=== PATIENT | male | born 1950 | race Caucasian/White ===

== ENCOUNTER 2019-06-18 12:37 | Inpatient (IN) | payer BC, MEDICARE ==
[2019-06-18] MEDS ORDERED: ACETAMINOPHEN TAB 500 MG TAB PO STA (13:02)
--- NOTE | 2019-06-18 13:05 | ED ---
General Adult HPI - General Chief complaint: Weakness Stated complaint: Weakness Time Seen by Provider: 06/18/19 12:45 Source: patient, EMS, RN notes reviewed Mode of arrival: EMS Limitations: physical limitation - History of Present Illness Initial comments: Patient is a pleasant 68-year-old male presenting to emergency Department with complaints of generalized weakness. Onset of symptoms was a couple of days ago. Symptoms have progressively worsened. Patient is unaware of any fevers. Patient does have known stage IV lung cancer and is on treatment. Patient denies any significant cough or dyspnea. No abdominal pain. No dysuria. This is generalized. No isolated area of weakness. No confusion or speech problems. - Related Data Home Medications Medication Instructions Recorded Confirmed Atorvastatin [Lipitor] 40 mg PO HS 06/18/19 06/18/19 Famotidine 20 mg PO BID 06/18/19 06/18/19 Folic Acid 1 mg PO DAILY 06/18/19 06/18/19 HYDROcodone/APAP 5-325MG [[place] 1 tab PO Q4HR PRN 06/18/19 06/18/19 5-325] Metoclopramide [Reglan] 10 mg PO Q6H PRN 06/18/19 06/18/19 Ondansetron HCl [Zofran] 8 mg PO Q8H PRN 06/18/19 06/18/19 Sennosides/Docusate Sodium 1 tab PO BID 06/18/19 06/18/19 [Senna-S Laxative Tablet] Tamsulosin [Flomax] 0.4 mg PO DAILY 06/18/19 06/18/19 levETIRAcetam [Keppra] 500 mg PO Q12HR 06/18/19 06/18/19 metFORMIN HCL [Glucophage] 500 mg PO BID 06/18/19 06/18/19 Allergies Allergy/AdvReac Type Severity Reaction Status Date / Time No Known Allergies Allergy Verified 06/18/19 13:43 Review of Systems ROS Statement: Those systems with pertinent positive or pertinent negative responses have been documented in the HPI. ROS Other: All systems not noted in ROS Statement are negative. Constitutional: Reports: as per HPI Eyes: Denies: eye pain ENT: Denies: ear pain Respiratory: Denies: dyspnea Cardiovascular: Denies: chest pain Endocrine: Reports: fatigue Gastrointestinal: Denies: abdominal pain Genitourinary: Denies: dysuria Musculoskeletal: Denies: back pain Skin: Denies: rash Neurological: Denies: headache Past Medical History Past Medical History: No Reported History History of Any Multi-Drug Resistant Organisms: None Reported Additional Past Surgical History / Comment(s): Stent in leg Past Psychological History: No Psychological Hx Reported Smoking Status: Never smoker Past Alcohol Use History: None Reported Past Drug Use History: None Reported General Exam Limitations: physical limitation General appearance: alert, in no apparent distress Head exam: Present: atraumatic Eye exam: Present: normal appearance, PERRL ENT exam: Present: mucous membranes dry Neck exam: Present: normal inspection. Absent: meningismus Respiratory exam: Present: normal lung sounds bilaterally Cardiovascular Exam: Present: tachycardia GI/Abdominal exam: Present: soft. Absent: distended, tenderness Extremities exam: Present: normal inspection. Absent: pedal edema, calf tenderness Neurological exam: Present: alert, oriented X3, CN II-XII intact. Absent: motor sensory deficit Expanded Neurological exam: Present: protecting the airway Speech: Present: fluid speech Motor strength exam: RUE: 5, LUE: 5, RLE: 5, LLE: 5 Eye Response: (4) open spontaneously Motor Response: (6) obeys commands Verbal Response: (5) oriented Psychiatric exam: Present: normal affect, normal mood Skin exam: Present: normal color Course Vital Signs 06/18/19 06/18/19 06/18/19 12:40 14:00 16:41 Temperature 102.0 F H 99.5 F Pulse Rate 125 H 112 H 94 Respiratory 18 19 18 Rate Blood Pressure 121/79 123/62 92/46 O2 Sat by Pulse 97 98 94 L Oximetry EKG Findings - EKG Comments: EKG Findings:: Sinus tachycardia 129. WA 116. QRS 74. QT 332. QTC 46. Normal axis. Normal QRS. No acute ST change. Medical Decision Making - Medical Decision Making Case was discussed with practitioner tiana who did recommend checking thyroid panel and computed tomography scan for pulmonary embolism. She does feel patient could benefit from steroids. Patient later reevaluated. Blood pressure has somewhat diminished. Patient feels somewhat better however family is concerned regarding patient inability to take care of himself. Case was also discussed with Dr. Martines, who will admit for Dr. Browne. He does request more fluids as well as Levaquin and Zosyn. - Lab Data Result diagrams: 06/18/19 13:04 06/18/19 13:04 Lab Results 06/18/19 06/18/19 06/18/19 Range/Units 13:04 13:04 13:04 WBC 9.5 (3.8-10.6) k/uL RBC 3.95 L (4.30-5.90) m/uL Hgb 11.4 L (13.0-17.5) gm/dL Hct 33.8 L (39.0-53.0) % MCV 85.7 (80.0-100.0) fL MCH 29.0 (25.0-35.0) pg MCHC 33.8 (31.0-37.0) g/dL RDW 16.2 H (11.5-15.5) % Plt Count 431 (150-450) k/uL Neutrophils % 66 % Lymphocytes % 18 % Monocytes % 9 % Eosinophils % 3 % Basophils % 0 % Neutrophils # 6.3 (1.3-7.7) k/uL Lymphocytes # 1.8 (1.0-4.8) k/uL Monocytes # 0.9 (0-1.0) k/uL Eosinophils # 0.3 (0-0.7) k/uL Basophils # 0.0 (0-0.2) k/uL Anisocytosis Slight PT (9.0-12.0) sec INR (<1.2) APTT (22.0-30.0) sec Sodium 137 (137-145) mmol/L Potassium 4.0 (3.5-5.1) mmol/L Chloride 100 (98-107) mmol/L Carbon Dioxide 22 (22-30) mmol/L Anion Gap 15 mmol/L BUN 14 (9-20) mg/dL Creatinine 1.52 H (0.66-1.25) mg/dL Est GFR (CKD-EPI)AfAm 55 (>60 ml/min/1.73 sqM) Est GFR (CKD-EPI)NonAf 47 (>60 ml/min/1.73 sqM) Glucose 119 H (74-99) mg/dL Plasma Lactic Acid Kermit 1.7 (0.7-2.0) mmol/L Calcium 9.0 (8.4-10.2) mg/dL Total Bilirubin 1.7 H (0.2-1.3) mg/dL AST 54 (17-59) U/L ALT 43 (21-72) U/L Alkaline Phosphatase 125 (38-126) U/L Total Protein 6.2 L (6.3-8.2) g/dL Albumin 3.4 L (3.5-5.0) g/dL Urine Color Urine Appearance (Clear) Urine pH (5.0-8.0) Ur Specific [place] (1.001-1.035) Urine Protein (Negative) Urine Glucose (UA) (Negative) Urine Ketones (Negative) Urine Blood (Negative) Urine Nitrite (Negative) Urine Bilirubin (Negative) Urine Urobilinogen (<2.0) mg/dL Ur Leukocyte Esterase (Negative) Urine WBC (0-5) /hpf Urine Bacteria (None) /hpf Urine Mucus (None) /hpf 06/18/19 06/18/19 Range/Units 13:04 13:20 WBC (3.8-10.6) k/uL RBC (4.30-5.90) m/uL Hgb (13.0-17.5) gm/dL Hct (39.0-53.0) % MCV (80.0-100.0) fL MCH (25.0-35.0) pg MCHC (31.0-37.0) g/dL RDW (11.5-15.5) % Plt Count (150-450) k/uL Neutrophils % % Lymphocytes % % Monocytes % % Eosinophils % % Basophils % % Neutrophils # (1.3-7.7) k/uL Lymphocytes # (1.0-4.8) k/uL Monocytes # (0-1.0) k/uL Eosinophils # (0-0.7) k/uL Basophils # (0-0.2) k/uL Anisocytosis PT 11.1 (9.0-12.0) sec INR 1.0 (<1.2) APTT 23.4 (22.0-30.0) sec Sodium (137-145) mmol/L Potassium (3.5-5.1) mmol/L Chloride (98-107) mmol/L Carbon Dioxide (22-30) mmol/L Anion Gap mmol/L BUN (9-20) mg/dL Creatinine (0.66-1.25) mg/dL Est GFR (CKD-EPI)AfAm (>60 ml/min/1.73 sqM) Est GFR (CKD-EPI)NonAf (>60 ml/min/1.73 sqM) Glucose (74-99) mg/dL Plasma Lactic Acid Kermit (0.7-2.0) mmol/L Calcium (8.4-10.2) mg/dL Total Bilirubin (0.2-1.3) mg/dL AST (17-59) U/L ALT (21-72) U/L Alkaline Phosphatase (38-126) U/L Total Protein (6.3-8.2) g/dL Albumin (3.5-5.0) g/dL Urine Color Yellow Urine Appearance Clear (Clear) Urine pH 5.5 (5.0-8.0) Ur Specific [place] 1.024 (1.001-1.035) Urine Protein 1+ H (Negative) Urine Glucose (UA) Negative (Negative) Urine Ketones Trace H (Negative) Urine Blood Negative (Negative) Urine Nitrite Negative (Negative) Urine Bilirubin Negative (Negative) Urine Urobilinogen 2.0 (<2.0) mg/dL Ur Leukocyte Esterase Negative (Negative) Urine WBC <1 (0-5) /hpf Urine Bacteria Rare H (None) /hpf Urine Mucus Rare H (None) /hpf - Radiology Data Radiology results: report reviewed (Computed tomography scan the chest negative for pulmonary embolism. Lung masses present.), image reviewed (Chest x-ray shows lung mass) Disposition Clinical Impression: Fever, Generalized weakness Disposition: ADMITTED IP TO THIS HOSP Is patient prescribed a controlled substance at d/c from ED?: No Referrals: Tomas Browne MD [Primary Care Provider] - 1-2 days Decision Time: 17:18
[2019-06-18] MEDS: SODIUM CHLORIDE 0.9% 500 ML 500 ML IV SCH (13:12)
[2019-06-18 13:20] LABS: Anisocytosis Slight; Basophils % (A) 0 %; Eosinophils # (A) 0.3 k/uL (0-0.7); Eosinophils % (A) 3 %; HCT 33.8 % (39.0-53.0); HGB 11.4 gm/dL (13.0-17.5); Lymphocytes # (A) 1.8 k/uL (1.0-4.8); Lymphocytes % (A) 18 %; MCHC 33.8 g/dL (31.0-37.0); MCV 85.7 fL (80.0-100.0); Monocytes # (A) 0.9 k/uL (0-1.0); Monocytes % (A) 9 %; Neutrophils # (A) 6.3 k/uL (1.3-7.7); Neutrophils % (A) 66 %; Platelet Count 431 k/uL (150-450); RBC 3.95 m/uL (4.30-5.90); RDW 16.2 % (11.5-15.5); WBC 9.5 k/uL (3.8-10.6)
[2019-06-18 13:30] LABS: Partial Thromboplastin Time 23.4 sec (22.0-30.0); Prothrombin Time 11.1 sec (9.0-12.0)
[2019-06-18 13:35] LABS: Albumin 3.4 g/dL (3.5-5.0); Total Bilirubin 1.7 mg/dL (0.2-1.3); Total Protein 6.2 g/dL (6.3-8.2)
--- NOTE | 2019-06-18 13:43 | XR ---
EXAMINATION TYPE: XR chest 2V DATE OF EXAM: 06/18/2019 COMPARISON: 11/09/2010 INDICATION: Weakness lung cancer TECHNIQUE: Frontal and lateral views of the chest are obtained. FINDINGS: The heart size is normal. The pulmonary vasculature is normal. There is a right infrahilar mass which can be associated with patient's reported lung cancer. Periphe ral consolidation is not identified.. IMPRESSION: 1. Right posterior infrahilar mass can be compatible patient's reported neoplasm.
[2019-06-18 13:55] LABS: Appearance,Urine Clear (Clear); Bacteria,Urine Rare /hpf; Bilirubin,Urine Negative (Negative); Blood,Urine Negative (Negative); Color,Urine Yellow; Glucose,Urine (UA) Negative (Negative); Ketones,Urine Trace (Negative); Leukocyte Esterase,Urine Negative (Negative); Mucus,Urine Rare /hpf; Nitrite,Urine Negative (Negative); PH, Urine 5.5 (5.0-8.0); Protein,Urine 1+ (Negative); Specific Gravity,Urine 1.024 (1.001-1.035); WBC,Urine <1 /hpf (0-5)
[2019-06-18] MEDS ORDERED: SODIUM CHLORIDE 0.9% 1,000 ML IV STA ×2 (15:07→16:56)
--- NOTE | 2019-06-18 15:26 | US ---
EXAMINATION TYPE: US gallbladder DATE OF EXAM: 06/18/2019 COMPARISON: NONE CLINICAL HISTORY: fever. Weakness, abnormal labs EXAM MEASUREMENTS: Liver Length: 12.4 cm Gallbladder Wall: 0.3 cm CBD: 0.4 cm Right Kidney: 9.0 x 4.6 x 4.8 cm Pancreas: wnl, tail obscured by overlying bowel gas Liver: There is mild heterogeneity throughout the liver without discrete masses or cysts. Some mild fatty infiltration may be present. Gallbladder: Sludge filling lumen/ wall thickness upper limits of normal Evidence for sonographic Oquendo's sign: No CBD: wnl Right Kidney: wnl, lower pole gassed out IMPRESSION: 1. Sludge-filled gallbladder. Correlate for cholestasis. 2. Mild fatty infiltration liver
--- NOTE | 2019-06-18 16:26 | CT ---
EXAMINATION TYPE: CT angio chest DATE OF EXAM: 06/18/2019 COMPARISON: HISTORY: Weakness and shortness of breath. Brain tumor removal in March 2019 CT DLP: 251.4 mGycm CONTRAST: CT chest with contrast and 3D reconstruction with MIP imaging is performed with IV Contrast, patient injected with 70 mL of Isovue 370. Contrast-enhanced CT of the chest was performed through the course of the pulmonary arteries with tejal g and mediastinal window settings submitted. 3D reconstruction with MIP imaging was also performed. PULMONARY ARTERIES: The pulmonary arteries and their major tributaries are patent. I do not see nguyễn dence for sizable filling defect to suggest pulmonary embolic process. LUNGS: Right infrahilar mass noted measuring 4.0 x 4.6 cm felt to reflect malignancy until proven oth erwise. Nodular pleural extension is identified posteriorly. There is extension to the right hilum. S uspect right hilar adenopathy. MEDIASTINUM: Thoracic aorta is of normal caliber,however, evaluation is limited given timing of the contrast bolus. The heart is not enlarged. No evidence for mediastinal mass. Subcarinal adenopathy measuring 1.5 cm short axis. HILAR STRUCTURES: No evidence for mass. No hilar lymph nodes greater than 1 cm. UPPER ABDOMEN: No significant abnormality is seen. IMPRESSION: 1. No evidence for Pulmonary embolism at this time. 2. Right infrahilar mass felt to reflect malignancy until proven otherwise. See above.
[2019-06-18] MEDS ORDERED: PIPERACILLIN-TAZOBACTAM 3.375 GM in SODIUM CHLORIDE 0.9% 100 ML IVPB STA (17:19)
[2019-06-18] MEDS ORDERED: PNEUMONIA PROTOCOL UTILIZED 1 EACH MISC PO PRN (17:19)
[2019-06-18] MEDS ORDERED: LEVOFLOXACIN 500MG-D5W PMX 500 MG in DEXTROSE/WATER 1 100ML.BAG IVPB STA (17:20)
[2019-06-18] MEDS: SODIUM CHLORIDE 0.9% 1,000 ML IV SCH (18:28)
[2019-06-18] MEDS: methylPREDNISolone SOD SUCCI 40 MG/ML 1 ML VIAL IV SCH ×2 (20:16→22:42)
[2019-06-18] MEDS ORDERED: METOCLOPRAMIDE 10 MG TAB PO PRN (21:58)
[2019-06-18] MEDS ORDERED: ONDANSETRON ODT 4 MG TAB PO PRN (21:58)
[2019-06-18] MEDS: FAMOTIDINE 20 MG TAB PO SCH (22:41)
[2019-06-18] MEDS: levETIRAcetam 500 MG TAB PO SCH (22:41)
[2019-06-18] MEDS: HYDROcodone/APAP 5-325MG 1 EACH TAB PO PRN (22:41)
[2019-06-18] MEDS: ATORVASTATIN 40 MG TAB PO SCH (22:41)
[2019-06-18] MEDS: PIPERACILLIN-TAZOBACTAM 3.375 GM in SODIUM CHLORIDE 0.9% 100 ML IVPB SCH (22:48)
[2019-06-18 23:51] LABS: T4, Free (Free Thyroxine) 1.31 ng/dL (0.78-2.19)
[2019-06-19] MEDS: SODIUM CHLORIDE 0.9% 1,000 ML IV SCH ×3 (04:48→23:28)
[2019-06-19 06:28] LABS: Glucose,Whole Blood 202 mg/dL (75-99)
[2019-06-19] MEDS: INSULIN ASPART (NovoLOG) 100 UNIT/ML VIAL SQ SCH ×4 (06:41→20:12)
[2019-06-19] MEDS: methylPREDNISolone SOD SUCCI 40 MG/ML 1 ML VIAL IV SCH ×4 (06:41→23:22)
[2019-06-19] MEDS: FAMOTIDINE 20 MG TAB PO SCH (08:28)
[2019-06-19] MEDS: FOLIC ACID 1 MG TAB PO SCH (08:28)
[2019-06-19] MEDS: levETIRAcetam 500 MG TAB PO SCH ×2 (08:28→20:13)
[2019-06-19] MEDS: SENNOSIDES-DOCUSATE SODIUM 1 EACH TAB PO SCH ×2 (08:28→20:13)
[2019-06-19] MEDS: TAMSULOSIN 0.4 MG CAP.ER.24H PO SCH (08:28)
[2019-06-19] MEDS: metFORMIN 500 MG TAB PO SCH ×2 (08:28→20:13)
[2019-06-19] MEDS: HYDROcodone/APAP 5-325MG 1 EACH TAB PO PRN ×2 (08:28→20:13)
[2019-06-19] MEDS: PIPERACILLIN-TAZOBACTAM 3.375 GM in SODIUM CHLORIDE 0.9% 100 ML IVPB SCH ×3 (08:29→23:28)
--- NOTE | 2019-06-19 09:16 | XR ---
EXAMINATION TYPE: XR chest 2V DATE OF EXAM: 06/19/2019 COMPARISON: 06/18/2019 INDICATION: Fever TECHNIQUE: Frontal and lateral views of the chest are obtained. FINDINGS: The heart size is normal. The pulmonary vasculature is normal. Right posterior hilar density is similar to slightly larger than comparison. Continued follow-up is r ecommended.. IMPRESSION: 1. Right posterior hilar density appears similar slightly enlarged from comparison. Continued Follow- up is recommended.
[2019-06-19 12:12] LABS: Glucose,Whole Blood 270 mg/dL (75-99)
--- NOTE | 2019-06-19 12:29 | P.HPIM ---
History of Present Illness H&P Date: 06/19/19 Chief Complaint: Generalized weakness /fever. This is a 8-year-old male one of Dr. Browne with a previous medical history significant for stage IV lung cancer was started on chemotherapy and immunotherapy for the first cycle in April he was supposed to go for another c hemotherapy yesterday however the patient for the past few days has been complaining of generalized weakness along with fever and poor appetite not able to ambulate around ,his friend came and tried to take him to the oncologist however he was so weak he called 911 and the patient was brought into the ER for evaluation he was slightly hypotensive on arrival he was given 2 L of normal saline also was found to have a temperature of 102.2, patient was given IV anabiotic in the form of Levaquin and Zosyn and he was started on IV steroid in the form of Solu-Medrol 40 mg IV push every 6 hours, patient was admitted to the hospital for evaluation by hematology oncology. Review of Systems Constitutional: Reports anorexia, Reports fatigue, Reports fever, Reports lethargy, Reports malaise, Reports weakness, Reports weight loss Eyes: denies blurred vision, denies bulging eye, denies decreased vision, denies diplopia Ears: deny: decreased hearing Ears, nose, mouth and throat: Denies dysphagia, Denies neck lump, Denies swelling in throat, Denies sore throat Cardiovascular: Reports decreased exercise tolerance, Reports dyspnea on exertion, Reports shortness of breath, Denies chest pain, Denies lightheadedness, Denies rapid heart beat, Denies syncope Respiratory: Denies congestion, Denies cough with sputum, Denies home oxygen, De nies sleep apnea, Denies snoring, Denies wheezing Gastrointestinal: Denies abdominal pain, Denies bloating, Denies BRBPR, Denies heartburn, Denies loss of appetite, Denies melena, Denies nausea, Denies vomiting Genitourinary: Denies dysuria Musculoskeletal: Reports atrophy, Reports gait dysfunction, Reports muscle weakness Musculoskeletal: absent: ankle pain, ankle stiffness, ankle swelling, elbow pain, elbow stiffness, elbow swelling, foot pain, foot stiffness, foot swelling, hand pain, hand stiffness, hand swelling, hip pain, hip stiffness, hip swelling, knee pain, knee stiffness, knee swelling, shoulder pain, shoulder stiffness, shoulder swelling, wrist pain, wrist stiffness, wrist swelling Integumentary: Denies pruritus, Denies rash Neurological: Reports gait dysfunction, Reports numbness, Reports weakness Psychiatric: Denies anxiety, Denies depression Endocrine: Reports fatigue, Reports weight change Past Medical History Past Medical History: Cancer, Diabetes Mellitus, GERD/Reflux, Hyperlipidemia, Neurologic Disorder, Osteoarthritis (OA), Prostate Disorder, Vascular Disorder Additional Past Medical History / Comment(s): stage 4 Lung CA with mets to the brain that were removed in April 16, History of Any Multi-Drug Resistant Organisms: None Reported Additional Past Surgical History / Comment(s): Stent in leg, removal of brain tumors march 2019 at [facility] Past Anesthesia/Blood Transfusion Reactions: No Reported Reaction Past Psychological History: No Psychological Hx Reported Smoking Status: Former smoker (Patient used to smoke about pack every day for about 47 years and he quit about 4 years ago.) Past Alcohol Use History: None Reported Past Drug Use History: Marijuana Additional Drug Use History / Comment(s): occasional marijuana use - Past Family History Father Family Medical History: Cancer (Father at age of 88 from prostate cancer and COPD.) Additional Family Medical History / Comment(s): prostate CA Sister(s) Family Medical History: Cancer (Patient has one sister with breast cancer.) Additional Family Medical History / Comment(s): Breast CA Mother Family Medical History: Dementia (Mother at age 78 after hip fracture from Alzheimer dementia.) Brother(s) Family Medical History: Diabetes Mellitus (Patient has 2 brothers with diabetes mellitus type 1.) Additional Family Medical History / Comment(s): Patient was never has no kids. Medications and Allergies Home Medications Medication Instructions Recorded Confirmed Type Atorvastatin [Lipitor] 40 mg PO HS 06/18/19 06/18/19 History Famotidine 20 mg PO BID 06/18/19 06/18/19 History Folic Acid 1 mg PO DAILY 06/18/19 06/18/19 History HYDROcodone/APAP 5-325MG [[place] 1 tab PO Q4HR PRN 06/18/19 06/18/19 History 5-325] Metoclopramide [Reglan] 10 mg PO Q6H PRN 06/18/19 06/18/19 History Ondansetron HCl [Zofran] 8 mg PO Q8H PRN 06/18/19 06/18/19 History Sennosides/Docusate Sodium 1 tab PO BID 06/18/19 06/18/19 History [Senna-S Laxative Tablet] Tamsulosin [Flomax] 0.4 mg PO DAILY 06/18/19 06/18/19 History levETIRAcetam [Keppra] 500 mg PO Q12HR 06/18/19 06/18/19 History metFORMIN HCL [Glucophage] 500 mg PO BID 06/18/19 06/18/19 History Allergies Allergy/AdvReac Type Severity Reaction Status Date / Time No Known Allergies Allergy Verified 06/18/19 13:43 Physical Exam Vitals: Vital Signs Temp Pulse Pulse Resp BP BP Pulse Ox 06/19/19 11:51 97.6 F 96 20 109/61 96 06/19/19 08:00 97.5 F L 113 H 20 113/62 96 06/19/19 03:46 79 18 06/19/19 03:45 98.0 F 79 18 104/56 95 06/19/19 00:00 98.5 F 91 18 96/53 92 L 06/18/19 20:55 98.1 F 91 18 124/66 96 06/18/19 20:26 98.0 F 98 20 104/65 95 06/18/19 18:47 93 18 106/61 94 L 06/18/19 16:41 94 18 92/46 94 L 06/18/19 14:00 99.5 F 112 H 19 123/62 98 06/18/19 12:40 102.0 F H 125 H 18 121/79 97 Intake and Output 06/18/19 06/19/19 06/19/19 22:59 06:59 14:59 Intake Total 800 Output Total 700 Balance 100 Intake: Intake, IV Titration 800 Amount Sodium Chloride 0.9% 1, 800 000 ml @ 100 mls/hr IV . Q10H [facility] Rx#:[id number] Output: Urine 700 Other: Voiding Method Urinal Urinal Urinal Weight 72.5 kg - Constitutional General appearance: mild distress, thin - EENT Eyes: anicteric sclerae, EOMI, PERRLA, no ptosis, no scleral icterus, normal appearance ENT: hearing grossly normal, NA/AT, normal oropharynx, no thrush Ears: bilateral: normal - Neck Neck: no lymphadenopathy, normal ROM, no rigidity, no stridor, no thyromegaly Carotids: bilateral: upstroke delayed Thyroid: bilateral: normal size - Respiratory Respiratory: bilateral: diminished, negative: dullness, rales, rhonchi, wheezing, prolonged expiration - Cardiovascular Rhythm: regular Heart sounds: normal: S1, S2 Abnormal Heart Sounds: systolic murmur, no S3 Gallop, no S4 Gallop, no click - Gastrointestinal General gastrointestinal: normal bowel sounds, soft, no tenderness, no umbilical hernia, no ventral hernia - Integumentary Integumentary: decreased turgor - Neurologic Neurologic: CNII-XII intact - Musculoskeletal Musculoskeletal: generalized weakness, strength equal bilaterally - Psychiatric Psychiatric: A&O x's 3, appropriate affect, intact judgment & insight Results CBC & Chem 7: 06/18/19 13:04 06/18/19 13:04 Labs: Abnormal Lab Results - Last 24 Hours (Table) 06/18/19 06/18/19 06/18/19 Range/Units 13:04 13:04 13:20 RBC 3.95 L (4.30-5.90) m/uL Hgb 11.4 L (13.0-17.5) gm/dL Hct 33.8 L (39.0-53.0) % RDW 16.2 H (11.5-15.5) % Creatinine 1.52 H (0.66-1.25) mg/dL Glucose 119 H (74-99) mg/dL POC Glucose (mg/dL) (75-99) mg/dL Total Bilirubin 1.7 H (0.2-1.3) mg/dL Total Protein 6.2 L (6.3-8.2) g/dL Albumin 3.4 L (3.5-5.0) g/dL Urine Protein 1+ H (Negative) Urine Ketones Trace H (Negative) Urine Bacteria Rare H (None) /hpf Urine Mucus Rare H (None) /hpf 06/19/19 06/19/19 Range/Units 06:16 12:06 RBC (4.30-5.90) m/uL Hgb (13.0-17.5) gm/dL Hct (39.0-53.0) % RDW (11.5-15.5) % Creatinine (0.66-1.25) mg/dL Glucose (74-99) mg/dL POC Glucose (mg/dL) 202 H 270 H (75-99) mg/dL Total Bilirubin (0.2-1.3) mg/dL Total Protein (6.3-8.2) g/dL Albumin (3.5-5.0) g/dL Urine Protein (Negative) Urine Ketones (Negative) Urine Bacteria (None) /hpf Urine Mucus (None) /hpf Microbiology - Last 24 Hours (Table) 06/18/19 13:20 Urine Culture - Preliminary Urine,Catheterized Thrombosis Risk Factor Assmnt - DVT/VTE Prophylaxis DVT/VTE Prophylaxis: Pharmacologic Prophylaxis ordered, Mechanical Prophylaxis ordered - Choose All That Apply Any of the Below Risk Factors Present?: No Other Risk Factors: Yes Each Risk Factor Represents 2 Points: Age 61-74 years Other congenital or acquired thrombophilia - If yes, enter type in comment: No Thrombosis Risk Factor Assessment Total Risk Factor Score: 2 Thrombosis Risk Factor Assessment Level: Low Risk Assessment and Plan Assessment: Assessment and plan: 1. Acute febrile illness of unclear etiology possible gram-negative pneumonia. Patient would have a blood cultures and sputum culture we will start IV antibiotic in the form of Levaquin and Zosyn, monitor the patient very closely, continue IV fluid resuscitation in the form of normal saline at 100 mL an hour, we will start the patient on Solu-Medrol 40 mg IV push every 6 hours as well hematology oncology consultation. This is could be all related to drug reactions and or tumor related fever. 2. Stage IV lung cancer status post chemotherapy and immunotherapy. Consult hematology oncology. 3. Diabetes mellitus type 2. Continue metformin 500 mg orally twice every day. 4. Hyperlipidemia. Continue Lipitor 40 mg orally once every day. 5. PAD. Status post left PTBA of the left leg stable. 6. Enlarged prostate. Continue Flomax 0.4 mg orally once every day. 7. DVT prophylaxis. Heparin 5000 units subcutaneously every 12 hours. 8. GI prophylaxis. Continue Pepcid. 9. Admit to inpatient. Estimated length of stay 2 midnights. 10. Patient is full code.
[2019-06-19 14:06] LABS: Hemoglobin A1C 8.8 % (4.0-6.0)
[2019-06-19 17:03] LABS: Glucose,Whole Blood 318 mg/dL (75-99)
--- NOTE | 2019-06-19 17:30 | P.CONS ---
History of Present Illness - Reason for Consult Consult date: 06/19/19 NSCLC Requesting physician: Ramirez Kidd - Chief Complaint Progressive weakness - History of Present Illness Mr. Feng is a very pleasant male pt of Dr. Skinner who initially presented with fullness in his head, treated with short course steroid with transient improvement. CT brain on 03/13/19 revealed a mass in right parietal occipital lobe associated with vasogenic edema. He was sent to [facility]. Brain MRI on 03/29/2019 revealed large necrotic mass in right occipital lobe associated with vasogenic edema,smaller lesion in right frontal lobe and a smaller lesion a left frontal lobe. 03/28/19 CT CAP revealed 5.8 x 5.4 x 5.3 cm mass in RLL, otherwise negative. 03/31/19 he had craniotomy and resection of the large right occipital mass, pathology was consistent with metastatic carcinoma consistent with adenocarcinoma of the lung. He was seen by Dr. Almaguer and completed whole brain radiation on 04/23/19. 05/06/19 PET scan revealed suspicious uptake in right hilar mass. Pt had 1 st carbo/alimta/keytruda on 05/28/19, and states he tolerated very well with no unmanageable side effects to report. He was due for cycle 2 yesterday but, a few days ago he began to have progressive symptoms of malaise, oral intake decreased and he became very weak, he came to ER, fever 102F, tachy, CBC ok, >20:1 BUN/Cr ratio, CTA neg for PE, no acute pneumonia suspected. He was admitted and started on empiric abx after galvan cultures. He is doing well when seen today, eating lunch, visiting with friends. He does live alone and pt and family want him to get rehab before he goes back. He admits to getting confused when it comes to taking his meds, may take some, forget others Review of Systems 14 point ROS is negative except as stated in HPI Past Medical History Past Medical History: Cancer, Diabetes Mellitus, GERD/Reflux, Hyperlipidemia, Neurologic Disorder, Osteoarthritis (OA), Prostate Disorder, Vascular Disorder Additional Past Medical History / Comment(s): stage 4 Lung CA with mets to the brain that were removed in April 16, History of Any Multi-Drug Resistant Organisms: None Reported Additional Past Surgical History / Comment(s): Stent in leg, removal of brain tumors march 2019 at [facility] Past Anesthesia/Blood Transfusion Reactions: No Reported Reaction Past Psychological History: No Psychological Hx Reported Smoking Status: Former smoker (Patient used to smoke about pack every day for about 47 years and he quit about 4 years ago.) Past Alcohol Use History: None Reported Past Drug Use History: Marijuana Additional Drug Use History / Comment(s): occasional marijuana use - Past Family History Father Family Medical History: Cancer (Father at age of 88 from prostate cancer and COPD.) Additional Family Medical History / Comment(s): prostate CA Sister(s) Family Medical History: Cancer (Patient has one sister with breast cancer.) Additional Family Medical History / Comment(s): Breast CA Mother Family Medical History: Dementia (Mother at age 78 after hip fracture from Alzheimer dementia.) Brother(s) Family Medical History: Diabetes Mellitus (Patient has 2 brothers with diabetes mellitus type 1.) Additional Family Medical History / Comment(s): Patient was never has no kids. Medications and Allergies Home Medications Medication Instructions Recorded Confirmed Type Atorvastatin [Lipitor] 40 mg PO HS 06/18/19 06/18/19 History Famotidine 20 mg PO BID 06/18/19 06/18/19 History Folic Acid 1 mg PO DAILY 06/18/19 06/18/19 History HYDROcodone/APAP 5-325MG [[place] 1 tab PO Q4HR PRN 06/18/19 06/18/19 History 5-325] Metoclopramide [Reglan] 10 mg PO Q6H PRN 06/18/19 06/18/19 History Ondansetron HCl [Zofran] 8 mg PO Q8H PRN 06/18/19 06/18/19 History Sennosides/Docusate Sodium 1 tab PO BID 06/18/19 06/18/19 History [Senna-S Laxative Tablet] Tamsulosin [Flomax] 0.4 mg PO DAILY 06/18/19 06/18/19 History levETIRAcetam [Keppra] 500 mg PO Q12HR 06/18/19 06/18/19 History metFORMIN HCL [Glucophage] 500 mg PO BID 06/18/19 06/18/19 History Allergies Allergy/AdvReac Type Severity Reaction Status Date / Time No Known Allergies Allergy Verified 06/18/19 13:43 Physical Exam Vitals: Vital Signs Temp Pulse Pulse Resp BP BP Pulse Ox 06/19/19 15:48 97.6 F 61 18 112/59 96 06/19/19 11:51 97.6 F 96 20 109/61 96 06/19/19 08:00 97.5 F L 113 H 20 113/62 96 06/19/19 03:46 79 18 06/19/19 03:45 98.0 F 79 18 104/56 95 06/19/19 00:00 98.5 F 91 18 96/53 92 L 06/18/19 20:55 98.1 F 91 18 124/66 96 06/18/19 20:26 98.0 F 98 20 104/65 95 06/18/19 18:47 93 18 106/61 94 L Intake and Output 06/19/19 06/19/19 06/19/19 06:59 14:59 22:59 Intake Total 800 900 Output Total 700 Balance 100 900 Intake: Intake, IV Titration 800 900 Amount Piperacillin-Tazobactam 3 100 .375 gm In Sodium Chloride 0.9% 100 ml @ 25 mls/hr IVPB Q8HR [facility] Rx# :[id number] Sodium Chloride 0.9% 1, 800 800 000 ml @ 100 mls/hr IV . Q10H [facility] Rx#:[id number] Output: Urine 700 Other: Voiding Method Urinal Urinal Weight 72.5 kg - Constitutional General appearance: cooperative, no acute distress, thin - EENT Eyes: anicteric sclerae, EOMI, poor dentition ENT: hearing grossly normal, normal oropharynx - Neck Neck: no lymphadenopathy - Respiratory Respiratory: bilateral: diminished - Cardiovascular Rhythm: regular Heart sounds: normal: S1, S2 Abnormal Heart Sounds: no systolic murmur, no diastolic murmur, no rub, no S3 Gallop, no S4 Gallop, no click, no other leg Peripheral Edema: bilateral: Trace - Gastrointestinal General gastrointestinal: no absent bowel sounds, no decreased bowel sounds, no distended, no hepatomegaly, no hyperactive bowel sounds, normal bowel sounds, no organomegaly, no rigid, no scaphoid, soft, no splenomegaly, no tenderness, no umbilical hernia, no ventral hernia - Neurologic Neurologic: CNII-XII intact - Musculoskeletal Musculoskeletal: generalized weakness - Psychiatric Psychiatric: A&O x's 3, appropriate affect, intact judgment & insight Results CBC & Chem 7: 06/18/19 13:04 06/18/19 13:04 Labs: Abnormal Lab Results - Last 24 Hours (Table) 06/18/19 06/19/19 06/19/19 Range/Units 13:04 06:16 12:06 POC Glucose (mg/dL) 202 H 270 H (75-99) mg/dL Hemoglobin A1c 8.8 H (4.0-6.0) % 06/19/19 Range/Units 16:45 POC Glucose (mg/dL) 318 H (75-99) mg/dL Hemoglobin A1c (4.0-6.0) % Microbiology - Last 24 Hours (Table) 06/18/19 13:04 Blood Culture - Preliminary Blood No Growth after 24 hours 06/18/19 13:20 Urine Culture - Preliminary Urine,Catheterized Chest x-ray: report reviewed Assessment and Plan (1) Dehydration Narrative/Plan: Improved with IV hydration. He is ate about 60% of his lunch tray. Pt c/o of it being hard for him to cook meals for just himself. I asked if he had inquired about meals on wheels, he said he refused it. I told him that if he refuses services that are available there is not much else the system can do. Current Visit: Yes Status: Acute Priority: High Code(s): E86.0 - DEHYDRATION SNOMED Code(s): 78501745 (2) Fever Narrative/Plan: No fever since admit. Cultures pending. Empiric abx Current Visit: Yes Status: Acute Priority: Low Code(s): R50.9 - FEVER, UNSPECIFIED SNOMED Code(s): 851168683 (3) Generalized weakness Narrative/Plan: Discussed with pt, family at bedside and Case Management. Pt wants to go to rehab before going back home. Pt is unable to receive chemo or immunotherapy while in rehab, he and family verbalized understanding Current Visit: Yes Status: Acute Priority: High Code(s): R53.1 - WEAKNESS SNOMED Code(s): 99006427 (4) Non-small cell lung cancer (NSCLC) Narrative/Plan: S/P 1st cycle of carbo/alimta/keytruda and XRT to brain for metastatic NSCLC. Very late onset of symptoms, do not anticipate relation to chemo/immunotherapy as he is improving rapidly with fluids and abx. We will taper steroids since pt is going to be in rehab and treatment is going to be held until after he returns home-in case of an immune SE. Current Visit: Yes Status: Acute Priority: High Code(s): C34.90 - MALIGNANT NEOPLASM OF UNSP PART OF UNSP BRONCHUS OR LUNG SNOMED Code(s): 445121511
[2019-06-19] MEDS ORDERED: LEVOFLOXACIN 500MG-D5W PMX 500 MG in DEXTROSE/WATER 1 100ML.BAG IVPB SCH (18:00)
[2019-06-19] MEDS ORDERED: LEVOFLOXACIN 250MG-D5W PMX 250 MG in DEXTROSE/WATER 1 50ML.BAG IVPB SCH (20:00)
[2019-06-19 20:07] LABS: Glucose,Whole Blood 300 mg/dL (75-99)
[2019-06-19] MEDS: HEPARIN SODIUM,PORCINE 5,000 UNIT/ML 1 ML VIAL SQ SCH (20:12)
[2019-06-19] MEDS: ATORVASTATIN 40 MG TAB PO SCH (20:12)
[2019-06-20] MEDS: HYDROcodone/APAP 5-325MG 1 EACH TAB PO PRN (01:45)
[2019-06-20 06:12] LABS: Glucose,Whole Blood 265 mg/dL (75-99)
[2019-06-20] MEDS: methylPREDNISolone SOD SUCCI 40 MG/ML 1 ML VIAL IV SCH ×4 (06:16→23:52)
[2019-06-20] MEDS: INSULIN ASPART (NovoLOG) 100 UNIT/ML VIAL SQ SCH ×4 (06:16→22:17)
[2019-06-20 07:22] LABS: Albumin 2.7 g/dL (3.5-5.0); Calcium 8.2 mg/dL (8.4-10.2); Potassium 4.1 mmol/L (3.5-5.1); Total Bilirubin 0.4 mg/dL (0.2-1.3); Total Protein 5.1 g/dL (6.3-8.2)
[2019-06-20 07:29] LABS: Anisocytosis Slight; Basophils % (A) 0 %; Eosinophils % (A) 0 %; HCT 28.3 % (39.0-53.0); Hypochromasia Slight; Lymphocytes # (A) 0.9 k/uL (1.0-4.8); Lymphocytes % (A) 9 %; MCH 28.5 pg (25.0-35.0); MCHC 32.6 g/dL (31.0-37.0); MCV 87.4 fL (80.0-100.0); Mean Platelet Volume 8.1; Monocytes # (A) 0.6 k/uL (0-1.0); Monocytes % (A) 5 %; Neutrophils # (A) 8.9 k/uL (1.3-7.7); Neutrophils % (A) 85 %; Platelet Count 439 k/uL (150-450); RBC 3.24 m/uL (4.30-5.90); RDW 17.4 % (11.5-15.5); WBC 10.5 k/uL (3.8-10.6)
[2019-06-20 07:30] LABS: HGB 9.2 gm/dL (13.0-17.5)
[2019-06-20] MEDS: PIPERACILLIN-TAZOBACTAM 3.375 GM in SODIUM CHLORIDE 0.9% 100 ML IVPB SCH ×3 (09:58→23:57)
[2019-06-20] MEDS: metFORMIN 500 MG TAB PO SCH ×2 (09:58→22:16)
[2019-06-20] MEDS: SENNOSIDES-DOCUSATE SODIUM 1 EACH TAB PO SCH ×2 (09:58→22:16)
[2019-06-20] MEDS: HEPARIN SODIUM,PORCINE 5,000 UNIT/ML 1 ML VIAL SQ SCH ×2 (09:58→22:15)
[2019-06-20] MEDS: FAMOTIDINE 20 MG TAB PO SCH (09:58)
[2019-06-20] MEDS: TAMSULOSIN 0.4 MG CAP.ER.24H PO SCH (09:58)
[2019-06-20] MEDS: levETIRAcetam 500 MG TAB PO SCH ×2 (09:58→22:16)
[2019-06-20] MEDS: FOLIC ACID 1 MG TAB PO SCH (09:58)
[2019-06-20] MEDS: SODIUM CHLORIDE 0.9% 1,000 ML IV SCH ×3 (09:59→23:58)
[2019-06-20 11:57] LABS: Glucose,Whole Blood 254 mg/dL (75-99)
[2019-06-20 14:11] VITALS: BMI 23.1
--- NOTE | 2019-06-20 14:40 | P.PN ---
Subjective Progress Note Date: 06/20/19 This is a 8-year-old male one of Dr. Browne with a previous medical history significant for stage IV lung cancer was started on chemotherapy and immunotherapy for the first cycle in April he was supposed to go for another chemotherapy yesterday however the patient for the past few days has been comp laining of generalized weakness along with fever and poor appetite not able to ambulate around ,his friend came and tried to take him to the oncologist however he was so weak he called 911 and the patient was brought into the ER for evaluation he was slightly hypotensive on arrival he was given 2 L of normal saline also was found to have a temperature of 102.2, patient was given IV anabiotic in the form of Levaquin and Zosyn and he was started on IV steroid in the form of Solu-Medrol 40 mg IV push every 6 hours, patient was admitted to the hospital for evaluation by hematology oncology. 06/20: Patient has been seen by oncology. When seen by oncology, patient was planning to go to subacute rehab at the time of discharge and oncology was planning to hold chemotherapy treatment until after he was discharged from rehab. Upon discussion with the patient this morning, he states that he really wants to go home and he has a friend who will be helping him into his brother can be with enema July. Patient states he did not sleep well last night. He had to get up in the middle of the night for bowel movement. He denies any diarrhea. No shortness of breath. Patient has been afebrile, heart rate 77, blood pressure 113/61, pulse ox 96% on room air. White count 10.4, hemoglobin 9.2, platelet count 439. Sodium 140, potassium 4.1, chloride 111, CO2 19, BUN 9 and creatinine 1.03. Blood sugars are running in the 200s. Levemir added. Urine culture finalized with no growth. Blood culture no growth after 24 hours. Objective - Vital Signs Vital signs: Vital Signs Temp 97.6 F 06/20/19 08:00 Pulse 65 06/20/19 08:00 Resp 18 06/20/19 08:00 BP 109/58 06/20/19 08:00 Pulse Ox 95 06/20/19 08:00 Intake & Output 08/22/19 08/23/19 08/23/19 18:59 06:59 18:59 Intake Total 1352 Output Total 800 Balance 552 Weight 71 kg Intake: Intake, IV Titration 900 Amount Piperacillin-Tazobactam 3 100 .375 gm In Sodium Chloride 0.9% 100 ml @ 25 mls/hr IVPB Q8HR [facility] Rx# :[id number] Sodium Chloride 0.9% 1, 800 000 ml @ 100 mls/hr IV . Q10H [facility] Rx#:[id number] Oral 452 Output: Urine 800 Other: Voiding Method Urinal Urinal # Voids 2 # Bowel Movements 1 - Exam Review of Systems Constitutional: Reports anorexia, Reports fatigue, Reports fever, Reports lethargy, Reports malaise, Reports weakness, Reports weight loss Eyes: denies blurred vision, denies bulging eye, denies decreased vision, denies diplopia Ears: deny: decreased hearing Ears, nose, mouth and throat: Denies dysphagia, Denies neck lump, Denies swelling in throat, Denies sore throat Cardiovascular: Reports decreased exercise tolerance, Reports dyspnea on exertion, denies shortness of breath, Denies chest pain, Denies lightheadedness, Denies rapid heart beat, Denies syncope Respiratory: Denies congestion, Denies cough with sputum, Denies home oxygen, Denies sleep apnea, Denies snoring, Denies wheezing Gastrointestinal: Denies abdominal pain, Denies bloating, Denies BRBPR, Denies heartburn, Denies loss of appetite, Denies melena, Denies nausea, Denies vomiting Genitourinary: Denies dysuria Musculoskeletal: Reports atrophy, Reports gait dysfunction, Reports muscle weakness Musculoskeletal: absent: ankle pain, ankle stiffness, ankle swelling, elbow pain, elbow stiffness, elbow swelling, foot pain, foot stiffness, foot swelling, hand pain, hand stiffness, hand swelling, hip pain, hip stiffness, hip swelling, knee pain, knee stiffness, knee swelling, shoulder pain, shoulder stiffness, shoulder swelling, wrist pain, wrist stiffness, wrist swelling Integumentary: Denies pruritus, Denies rash Neurological: Reports gait dysfunction, Reports numbness, Reports weakness Psychiatric: Denies anxiety, Denies depression Endocrine: Reports fatigue, Reports weight change Physical exam: - Constitutional General appearance: mild distress, thin - EENT Eyes: anicteric sclerae, EOMI, PERRLA, no ptosis, no scleral icterus, normal appearance ENT: hearing grossly normal, NA/AT, normal oropharynx, no thrush Ears: bilateral: normal - Neck Neck: no lymphadenopathy, normal ROM, no rigidity, no stridor, no thyromegaly Carotids: bilateral: upstroke delayed Thyroid: bilateral: normal size - Respiratory Respiratory: bilateral: Clear to auscultation, negative: dullness, rales, rhonchi, wheezing, prolonged expiration - Cardiovascular Rhythm: regular Heart sounds: normal: S1, S2 Abnormal Heart Sounds: systolic murmur, no S3 Gallop, no S4 Gallop, no click - Gastrointestinal General gastrointestinal: normal bowel sounds, soft, no tenderness, no umbilical hernia, no ventral hernia - Integumentary Integumentary: decreased turgor - Neurologic Neurologic: CNII-XII intact - Musculoskeletal Musculoskeletal: generalized weakness, strength equal bilaterally - Psychiatric Psychiatric: A&O x's 3, appropriate affect, intact judgment & insight - Labs CBC & Chem 7: 06/20/19 06:02 06/20/19 06:02 Labs: Abnormal Lab Results - Last 24 Hours (Table) 06/18/19 06/19/19 06/19/19 Range/Units 13:04 12:06 16:45 RBC (4.30-5.90) m/uL Hgb (13.0-17.5) gm/dL Hct (39.0-53.0) % RDW (11.5-15.5) % Neutrophils # (1.3-7.7) k/uL Lymphocytes # (1.0-4.8) k/uL Chloride (98-107) mmol/L Carbon Dioxide (22-30) mmol/L Glucose (74-99) mg/dL POC Glucose (mg/dL) 270 H 318 H (75-99) mg/dL Hemoglobin A1c 8.8 H (4.0-6.0) % Calcium (8.4-10.2) mg/dL Total Protein (6.3-8.2) g/dL Albumin (3.5-5.0) g/dL 06/19/19 06/20/19 06/20/19 Range/Units 20:06 05:52 06:02 RBC 3.24 L (4.30-5.90) m/uL Hgb 9.2 L D (13.0-17.5) gm/dL Hct 28.3 L (39.0-53.0) % RDW 17.4 H (11.5-15.5) % Neutrophils # 8.9 H (1.3-7.7) k/uL Lymphocytes # 0.9 L (1.0-4.8) k/uL Chloride (98-107) mmol/L Carbon Dioxide (22-30) mmol/L Glucose (74-99) mg/dL POC Glucose (mg/dL) 300 H 265 H (75-99) mg/dL Hemoglobin A1c (4.0-6.0) % Calcium (8.4-10.2) mg/dL Total Protein (6.3-8.2) g/dL Albumin (3.5-5.0) g/dL 06/20/19 Range/Units 06:02 RBC (4.30-5.90) m/uL Hgb (13.0-17.5) gm/dL Hct (39.0-53.0) % RDW (11.5-15.5) % Neutrophils # (1.3-7.7) k/uL Lymphocytes # (1.0-4.8) k/uL Chloride 111 H (98-107) mmol/L Carbon Dioxide 19 L (22-30) mmol/L Glucose 253 H (74-99) mg/dL POC Glucose (mg/dL) (75-99) mg/dL Hemoglobin A1c (4.0-6.0) % Calcium 8.2 L (8.4-10.2) mg/dL Total Protein 5.1 L (6.3-8.2) g/dL Albumin 2.7 L (3.5-5.0) g/dL Microbiology - Last 24 Hours (Table) 06/18/19 13:20 Urine Culture - Final Urine,Catheterized 06/18/19 13:04 Blood Culture - Preliminary Blood No Growth after 24 hours Assessment and Plan Plan: 1. Acute febrile illness of unclear etiology possible gram-negative pneumonia. Continue Levaquin and Zosyn, monitor the patient very closely, continue IV fluid resuscitation in the form of normal saline at 100 mL an hour, we will start the patient on Solu-Medrol 40 mg IV push every 6 hours as well hematology oncology consultation appreciated. This is could be all related to drug reactions and or tumor related fever. 2. Stage IV lung cancer status post chemotherapy and immunotherapy. Consult hematology oncology appreciated. 3. Diabetes mellitus type 2 uncontrolled with hyperglycemia secondary to steroids. Levemir added. Continue metformin 500 mg orally twice every day. 4. Hyperlipidemia. Continue Lipitor 40 mg orally once every day. 5. PAD. Status post left PTBA of the left leg stable. 6. Enlarged prostate. Continue Flomax 0.4 mg orally once every day. 7. DVT prophylaxis. Heparin 5000 units subcutaneously every 12 hours. 8. GI prophylaxis. Continue Pepcid. 9. Patient is full code. Discharge plan: Most likely return home or [facility] on Sunday Impression and plan of care have been directed as dictated by the signing physician. Janna Hillman nurse practitioner acting as scribe for signing physician.
--- NOTE | 2019-06-20 15:05 | P.PN ---
Subjective Progress Note Date: 06/20/19 Principal diagnosis: NSCLCA/Dehydration No acute changes overnight Objective - Vital Signs Vital signs: Vital Signs Temp 97.8 F 06/20/19 12:00 Pulse 77 06/20/19 12:00 Resp 18 06/20/19 12:00 BP 113/61 06/20/19 12:00 Pulse Ox 96 06/20/19 12:00 Intake & Output 06/19/19 06/20/19 06/20/19 18:59 06:59 18:59 Intake Total 1352 600 Output Total 800 Balance 552 600 Weight 71 kg 71 kg Intake: Intake, IV Titration 900 Amount Piperacillin-Tazobactam 3 100 .375 gm In Sodium Chloride 0.9% 100 ml @ 25 mls/hr IVPB Q8HR [facility] Rx# :[id number] Sodium Chloride 0.9% 1, 800 000 ml @ 100 mls/hr IV . Q10H [facility] Rx#:[id number] Oral 452 600 Output: Urine 800 Other: Voiding Method Urinal Urinal # Voids 2 # Bowel Movements 1 - Exam - Constitutional General appearance: cooperative, no acute distress, thin - EENT Eyes: anicteric sclerae, EOMI, poor dentition ENT: hearing grossly normal, normal oropharynx - Neck Neck: no lymphadenopathy - Respiratory Respiratory: bilateral: diminished - Cardiovascular Rhythm: regular Heart sounds: normal: S1, S2 Abnormal Heart Sounds: no systolic murmur, no diastolic murmur, no rub, no S3 Gallop, no S4 Gallop, no click, no other leg Peripheral Edema: bilateral: Trace - Gastrointestinal General gastrointestinal: no absent bowel sounds, no decreased bowel sounds, no distended, no hepatomegaly, no hyperactive bowel sounds, normal bowel sounds, no organomegaly, no rigid, no scaphoid, soft, no splenomegaly, no tenderness, no umbilical hernia, no ventral hernia - Neurologic Neurologic: CNII-XII intact - Musculoskeletal Musculoskeletal: generalized weakness - Psychiatric Psychiatric: A&O x's 3, appropriate affect, intact judgment & insight - Labs CBC & Chem 7: 06/20/19 06:02 06/20/19 06:02 Labs: Abnormal Lab Results - Last 24 Hours (Table) 06/19/19 06/19/19 06/20/19 Range/Units 16:45 20:06 05:52 RBC (4.30-5.90) m/uL Hgb (13.0-17.5) gm/dL Hct (39.0-53.0) % RDW (11.5-15.5) % Neutrophils # (1.3-7.7) k/uL Lymphocytes # (1.0-4.8) k/uL Chloride (98-107) mmol/L Carbon Dioxide (22-30) mmol/L Glucose (74-99) mg/dL POC Glucose (mg/dL) 318 H 300 H 265 H (75-99) mg/dL Calcium (8.4-10.2) mg/dL Total Protein (6.3-8.2) g/dL Albumin (3.5-5.0) g/dL 06/20/19 06/20/19 06/20/19 Range/Units 06:02 06:02 11:53 RBC 3.24 L (4.30-5.90) m/uL Hgb 9.2 L D (13.0-17.5) gm/dL Hct 28.3 L (39.0-53.0) % RDW 17.4 H (11.5-15.5) % Neutrophils # 8.9 H (1.3-7.7) k/uL Lymphocytes # 0.9 L (1.0-4.8) k/uL Chloride 111 H (98-107) mmol/L Carbon Dioxide 19 L (22-30) mmol/L Glucose 253 H (74-99) mg/dL POC Glucose (mg/dL) 254 H (75-99) mg/dL Calcium 8.2 L (8.4-10.2) mg/dL Total Protein 5.1 L (6.3-8.2) g/dL Albumin 2.7 L (3.5-5.0) g/dL Microbiology - Last 24 Hours (Table) 06/18/19 13:20 Urine Culture - Final Urine,Catheterized 06/18/19 13:04 Blood Culture - Preliminary Blood No Growth after 24 hours Assessment and Plan Plan: Assessment and Plan Dehydration - Improving Fever - Improved, Afebrile - Cultures pending. Empiric abx Generalized weakness - PT/OT Benefit with [facility] PT/OT, he inquires about In patient Rehab prior to discharge home, understanding if he is in a facility systemic cancer treatment will need to be held. Non-small cell lung cancer (NSCLC) - S/P 1st cycle of carbo/alimta/keytruda and XRT to brain for metastatic NSCLC. PLAN: - Feel Symptoms presented late, likely secondary to failure to thrive, decreased PO intake and progressive dehydration and nutrition, Patient refused home services i.e. meals on wheels. Taper Steroids since pt is going to be in rehab and treatment is going to be held until after he returns home-in case of an immune SE.
[2019-06-20 16:58] LABS: Glucose,Whole Blood 192 mg/dL (75-99)
[2019-06-20 20:07] LABS: Glucose,Whole Blood 260 mg/dL (75-99)
[2019-06-20] MEDS ORDERED: LEVOFLOXACIN 250 MG TAB PO SCH (21:00)
[2019-06-20] MEDS: ATORVASTATIN 40 MG TAB PO SCH (22:16)
[2019-06-20] MEDS: INSULIN DETEMIR (LEVEMIR) 100 UNIT/ML SYR SQ SCH (22:17)
[2019-06-21] MEDS: HYDROcodone/APAP 5-325MG 1 EACH TAB PO PRN ×3 (03:52→19:58)
[2019-06-21] MEDS: methylPREDNISolone SOD SUCCI 40 MG/ML 1 ML VIAL IV SCH ×4 (05:51→23:25)
[2019-06-21 06:17] LABS: Glucose,Whole Blood 189 mg/dL (75-99)
[2019-06-21] MEDS: INSULIN ASPART (NovoLOG) 100 UNIT/ML VIAL SQ SCH ×4 (07:09→19:53)
[2019-06-21] MEDS: FAMOTIDINE 20 MG TAB PO SCH ×2 (10:23→19:52)
[2019-06-21] MEDS: HEPARIN SODIUM,PORCINE 5,000 UNIT/ML 1 ML VIAL SQ SCH ×2 (10:23→19:50)
[2019-06-21] MEDS: levETIRAcetam 500 MG TAB PO SCH ×2 (10:23→19:50)
[2019-06-21] MEDS: metFORMIN 500 MG TAB PO SCH ×2 (10:23→19:51)
[2019-06-21] MEDS: FOLIC ACID 1 MG TAB PO SCH (10:23)
[2019-06-21] MEDS: SENNOSIDES-DOCUSATE SODIUM 1 EACH TAB PO SCH ×2 (10:24→19:51)
[2019-06-21] MEDS: TAMSULOSIN 0.4 MG CAP.ER.24H PO SCH (10:24)
[2019-06-21] MEDS: PIPERACILLIN-TAZOBACTAM 3.375 GM in SODIUM CHLORIDE 0.9% 100 ML IVPB SCH ×3 (10:51→23:27)
[2019-06-21 12:21] LABS: Glucose,Whole Blood 244 mg/dL (75-99)
[2019-06-21] MEDS: SODIUM CHLORIDE 0.9% 1,000 ML IV SCH ×2 (15:46→23:27)
[2019-06-21 17:28] LABS: Glucose,Whole Blood 209 mg/dL (75-99)
[2019-06-21] MEDS: LEVOFLOXACIN 500 MG TAB PO SCH (19:51)
[2019-06-21] MEDS: ATORVASTATIN 40 MG TAB PO SCH (19:52)
[2019-06-21 19:53] LABS: Glucose,Whole Blood 193 mg/dL (75-99)
[2019-06-21] MEDS: INSULIN DETEMIR (LEVEMIR) 100 UNIT/ML SYR SQ SCH (20:32)
--- NOTE | 2019-06-21 20:40 | P.PN ---
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 with a previous medical history significant for stage IV lung cancer was started on chemotherapy and immunotherapy for the first cycle in April he was supposed to go for another chemotherapy yesterday however the patient for the past few days has been co mplaining of generalized weakness along with fever and poor appetite not able to ambulate around ,his friend came and tried to take him to the oncologist however he was so weak he called 911 and the patient was brought into the ER for evaluation he was slightly hypotensive on arrival he was given 2 L of normal saline also was found to have a temperature of 102.2, patient was given IV anabiotic in the form of Levaquin and Zosyn and he was started on IV steroid in the form of Solu-Medrol 40 mg IV push every 6 hours, patient was admitted to the hospital for evaluation by hematology oncology. 06/20: Patient has been seen by oncology. When seen by oncology, patient was planning to go to subacute rehab at the time of discharge and oncology was planning to hold chemotherapy treatment until after he was discharged from rehab. Upon discussion with the patient this morning, he states that he really wants to go home and he has a friend who will be helping him into his brother can be with enema July. Patient states he did not sleep well last night. He had to get up in the middle of the night for bowel movement. He denies any diarrhea. No shortness of breath. Patient has been afebrile, heart rate 77, blood pressure 113/61, pulse ox 96% on room air. White count 10.4, hemoglobin 9.2, platelet count 439. Sodium 140, potassium 4.1, chloride 111, CO2 19, BUN 9 and creatinine 1.03. Blood sugars are running in the 200s. Levemir added. Urine culture finalized with no growth. Blood culture no growth after 24 hours. 06/21patient was seen today, he seems to be weaker, still no appetite, no shortness of breath,discharge planning still needs to be decided by family, subacute against home,cultures are currently pending, family is undecided as D patient wants to go home, however therapies are recommending inpatient rehab, they understand that if subacute rehab is made, systemic cancer treatment will be held, vitals are stable, T-max98.1, pulse ox 99% on room air Objective - Vital Signs Vital signs: Vital Signs Temp 98.1 F 06/21/19 15:35 Pulse 55 L 06/21/19 15:35 Resp 18 06/21/19 15:35 BP 126/58 06/21/19 15:35 Pulse Ox 97 06/21/19 15:35 Intake & Output 06/21/19 06/21/19 06/22/19 06:59 18:59 06:59 Intake Total 230 Output Total 0 1200 Balance 0 -970 Weight 70.6 kg Intake: Oral 230 Output: Urine 0 1200 Other: # Voids 1 1 # Bowel Movements 1 1 - Constitutional General appearance: Present: cooperative, no acute distress - EENT Eyes: Present: anicteric sclerae, EOMI, PERRLA, dentition normal, normal appearance ENT: Present: hard of hearing, NA/AT, normal oropharynx - Neck Neck: Present: normal ROM - Respiratory Respiratory: bilateral: CTA, negative: diminished, dullness, rales - Cardiovascular Heart sounds: normal: S1, S2 Abnormal Heart Sounds: Absent: systolic murmur, diastolic murmur, rub, S3 Gallop, S4 Gallop, click, other - Gastrointestinal General gastrointestinal: Present: normal bowel sounds, soft - Integumentary Integumentary: Present: decreased turgor, normal - Neurologic Neurologic: Present: CNII-XII intact - Musculoskeletal Musculoskeletal: Present: generalized weakness, strength equal bilaterally - Labs CBC & Chem 7: 06/22/19 06:00 06/22/19 06:00 Labs: Abnormal Lab Results - Last 24 Hours (Table) 06/21/19 06/21/19 06/21/19 Range/Units 06:15 12:08 17:19 POC Glucose (mg/dL) 189 H 244 H 209 H (75-99) mg/dL 06/21/19 Range/Units 19:52 POC Glucose (mg/dL) 193 H (75-99) mg/dL Microbiology - Last 24 Hours (Table) 06/18/19 13:04 Blood Culture - Preliminary Blood No Growth after 72 hours Laboratory Results WBC 10.5 k/uL (3.8-10.6) 06/20/19 06:02 RBC 3.24 m/uL (4.30-5.90) L 06/20/19 06:02 Hgb 9.2 gm/dL (13.0-17.5) L D 06/20/19 06:02 Hct 28.3 % (39.0-53.0) L 06/20/19 06:02 MCV 87.4 fL (80.0-100.0) 06/20/19 06:02 MCH 28.5 pg (25.0-35.0) 06/20/19 06:02 MCHC 32.6 g/dL (31.0-37.0) 06/20/19 06:02 RDW 17.4 % (11.5-15.5) H 06/20/19 06:02 Plt Count 439 k/uL (150-450) 06/20/19 06:02 Neutrophils % 85 % 06/20/19 06:02 Lymphocytes % 9 % 06/20/19 06:02 Monocytes % 5 % 06/20/19 06:02 Eosinophils % 0 % 06/20/19 06:02 Basophils % 0 % 06/20/19 06:02 Neutrophils # 8.9 k/uL (1.3-7.7) H 06/20/19 06:02 Lymphocytes # 0.9 k/uL (1.0-4.8) L 06/20/19 06:02 Monocytes # 0.6 k/uL (0-1.0) 06/20/19 06:02 Eosinophils # 0.0 k/uL (0-0.7) 06/20/19 06:02 Basophils # 0.0 k/uL (0-0.2) 06/20/19 06:02 Hypochromasia Slight 06/20/19 06:02 Anisocytosis Slight 06/20/19 06:02 PT 11.1 sec (9.0-12.0) 06/18/19 13:04 INR 1.0 (<1.2) 06/18/19 13:04 APTT 23.4 sec (22.0-30.0) 06/18/19 13:04 Sodium 140 mmol/L (137-145) 06/20/19 06:02 Potassium 4.1 mmol/L (3.5-5.1) 06/20/19 06:02 Chloride 111 mmol/L (98-107) H 06/20/19 06:02 Carbon Dioxide 19 mmol/L (22-30) L 06/20/19 06:02 Anion Gap 10 mmol/L 06/20/19 06:02 BUN 9 mg/dL (9-20) 06/20/19 06:02 Creatinine 1.03 mg/dL (0.66-1.25) 06/20/19 06:02 Est GFR (CKD-EPI)AfAm 88 (>60 ml/min/1.73 sqM) 06/20/19 06:02 Est GFR (CKD-EPI)NonAf 76 (>60 ml/min/1.73 sqM) 06/20/19 06:02 Glucose 253 mg/dL (74-99) H 06/20/19 06:02 POC Glucose (mg/dL) 193 mg/dL (75-99) H 06/21/19 19:52 POC Glu [employer] ID Miladis Putnam 06/21/19 19:[address] Glu mg/dL 206 06/18/19 13:04 Hemoglobin A1c 8.8 % (4.0-6.0) H 06/18/19 13:04 Plasma Lactic Acid Kermit 1.7 mmol/L (0.7-2.0) 06/18/19 13:04 Calcium 8.2 mg/dL (8.4-10.2) L 06/20/19 06:02 Total Bilirubin 0.4 mg/dL (0.2-1.3) 06/20/19 06:02 AST 29 U/L (17-59) 06/20/19 06:02 ALT 36 U/L (21-72) 06/20/19 06:02 Alkaline Phosphatase 88 U/L (38-126) 06/20/19 06:02 Total Protein 5.1 g/dL (6.3-8.2) L 06/20/19 06:02 Albumin 2.7 g/dL (3.5-5.0) L 06/20/19 06:02 TSH 3.770 mIU/L (0.465-4.680) 06/18/19 13:04 Free T4 1.31 ng/dL (0.78-2.19) 06/18/19 13:04 Free T3 pg/mL 2.8 pg/ml (2.8-5.3) 06/18/19 13:04 Urine Color Yellow 06/18/19 13:20 Urine Appearance Clear (Clear) 06/18/19 13:20 Urine pH 5.5 (5.0-8.0) 06/18/19 13:20 Ur Specific [place] 1.024 (1.001-1.035) 06/18/19 13:20 Urine Protein 1+ (Negative) H 06/18/19 13:20 Urine Glucose (UA) Negative (Negative) 06/18/19 13:20 Urine Ketones Trace (Negative) H 06/18/19 13:20 Urine Blood Negative (Negative) 06/18/19 13:20 Urine Nitrite Negative (Negative) 06/18/19 13:20 Urine Bilirubin Negative (Negative) 06/18/19 13:20 Urine Urobilinogen 2.0 mg/dL (<2.0) 06/18/19 13:20 Ur Leukocyte Esterase Negative (Negative) 06/18/19 13:20 Urine WBC <1 /hpf (0-5) 06/18/19 13:20 Urine Bacteria Rare /hpf (None) H 06/18/19 13:20 Urine Mucus Rare /hpf (None) H 06/18/19 13:20 Levetiracetam 19.9 ug/mL (3.0-60.0) 06/19/19 13:28 Assessment and Plan Plan: 1. Acute febrile illness of unclear etiology possible gram-negative pneumonia. Continue Levaquin and Zosyn, monitor the patient very closely, continue IV fluid resuscitation in the form of normal saline at 100 mL an hour, we will start the patient on Solu-Medrol 40 mg IV push every 6 hours as well hematology oncology consultation appreciated. This is could be all related to drug reactions and or tumor related fever. 2. Stage IV lung cancer status post chemotherapy and immunotherapy. Consult hematology oncology appreciated. 3. Diabetes mellitus type 2 uncontrolled with hyperglycemia secondary to steroids. Levemir added. Continue metformin 500 mg orally twice every day. 4. Hyperlipidemia. Continue Lipitor 40 mg orally once every day. 5. PAD. Status post left PTBA of the left leg stable. 6. Enlarged prostate. Continue Flomax 0.4 mg orally once every day. 7. DVT prophylaxis. Heparin 5000 units subcutaneously every 12 hours. 8. GI prophylaxis. Continue Pepcid. 9. Patient is full code. Discharge plan: Most likely return home or [facility] on Sunday
[2019-06-22] MEDS: methylPREDNISolone SOD SUCCI 40 MG/ML 1 ML VIAL IV SCH ×3 (05:04→17:41)
[2019-06-22] MEDS: HYDROcodone/APAP 5-325MG 1 EACH TAB PO PRN ×2 (05:07→20:34)
[2019-06-22 06:31] LABS: Glucose,Whole Blood 173 mg/dL (75-99)
[2019-06-22] MEDS: INSULIN ASPART (NovoLOG) 100 UNIT/ML VIAL SQ SCH ×4 (06:36→22:03)
[2019-06-22 06:39] LABS: Anisocytosis Slight; Basophils % (A) 0 %; Eosinophils % (A) 0 %; HCT 31.9 % (39.0-53.0); HGB 10.7 gm/dL (13.0-17.5); Lymphocytes # (A) 1.4 k/uL (1.0-4.8); Lymphocytes % (A) 12 %; MCH 29.1 pg (25.0-35.0); MCHC 33.4 g/dL (31.0-37.0); MCV 87.1 fL (80.0-100.0); Mean Platelet Volume 7.4; Monocytes # (A) 0.8 k/uL (0-1.0); Monocytes % (A) 7 %; Neutrophils # (A) 9.3 k/uL (1.3-7.7); Neutrophils % (A) 80 %; Platelet Count 504 k/uL (150-450); RBC 3.67 m/uL (4.30-5.90); RDW 16.7 % (11.5-15.5); WBC 11.7 k/uL (3.8-10.6)
[2019-06-22 06:51] LABS: African American GFR (CKD) >90 (>60 ml/min/1.73 sqM); Anion Gap 12 mmol/L; Blood Urea Nitrogen 15 mg/dL (9-20); Calcium 8.9 mg/dL (8.4-10.2); Carbon Dioxide 24 mmol/L (22-30); Chloride 105 mmol/L (98-107); Glucose 171 mg/dL (74-99); Potassium 4.2 mmol/L (3.5-5.1); Sodium 141 mmol/L (137-145)
[2019-06-22] MEDS: levETIRAcetam 500 MG TAB PO SCH ×2 (08:25→20:27)
[2019-06-22] MEDS: FOLIC ACID 1 MG TAB PO SCH (08:25)
[2019-06-22] MEDS: FAMOTIDINE 20 MG TAB PO SCH ×2 (08:25→20:27)
[2019-06-22] MEDS: TAMSULOSIN 0.4 MG CAP.ER.24H PO SCH (08:25)
[2019-06-22] MEDS: metFORMIN 500 MG TAB PO SCH ×2 (08:25→20:27)
[2019-06-22] MEDS: SENNOSIDES-DOCUSATE SODIUM 1 EACH TAB PO SCH ×2 (08:25→20:26)
[2019-06-22] MEDS: PIPERACILLIN-TAZOBACTAM 3.375 GM in SODIUM CHLORIDE 0.9% 100 ML IVPB SCH ×2 (08:27→16:13)
[2019-06-22] MEDS: HEPARIN SODIUM,PORCINE 5,000 UNIT/ML 1 ML VIAL SQ SCH ×2 (08:28→20:27)
--- NOTE | 2019-06-22 11:23 | P.PN ---
Subjective Progress Note Date: 06/22/19 Principal diagnosis: Fever and weakness In follow-up today patient is laying comfortably in bed, he denies fevers, he is tolerating his diet without nausea or vomiting, no progressive cough, difficulty in breathing symptoms, abdominal pain, diarrhea or constipation, he has been ambulating in the room. Objective - Vital Signs Vital signs: Vital Signs Temp 98.1 F 06/22/19 08:00 Pulse 58 L 06/22/19 08:00 Resp 16 06/22/19 08:00 BP 132/65 06/22/19 08:00 Pulse Ox 95 06/22/19 08:00 Intake & Output 06/21/19 06/22/19 06/22/19 18:59 06:59 18:59 Intake Total 230 900 Output Total 6728 155 1600 Balance -970 100 -1000 Weight 68.6 kg Intake: Intake, IV Titration 700 Amount Sodium Chloride 0.9% 1, 700 000 ml @ 100 mls/hr IV . Q10H [facility] Rx#:[id number] Oral 230 200 Output: Urine 2885 056 1610 Other: # Voids 1 # Bowel Movements 1 - Constitutional General appearance: Present: cooperative, no acute distress, thin - EENT Eyes: Present: anicteric sclerae, EOMI ENT: Present: hearing grossly normal, normal oropharynx - Respiratory Respiratory: right: CTA, left: diminished - Cardiovascular Rhythm: regular Heart sounds: normal: S1, S2 - Peripheral edema leg Peripheral Edema: bilateral: None - Gastrointestinal General gastrointestinal: Present: normal bowel sounds, soft - Neurologic Neurologic: Present: CNII-XII intact - Musculoskeletal Musculoskeletal: Present: generalized weakness - Psychiatric Psychiatric: Present: A&O x's 3, appropriate affect, intact judgment & insight - Labs CBC & Chem 7: 06/22/19 06:00 06/22/19 06:00 Labs: Abnormal Lab Results - Last 24 Hours (Table) 06/21/19 06/21/19 06/21/19 Range/Units 12:08 17:19 19:52 WBC (3.8-10.6) k/uL RBC (4.30-5.90) m/uL Hgb (13.0-17.5) gm/dL Hct (39.0-53.0) % RDW (11.5-15.5) % Plt Count (150-450) k/uL Neutrophils # (1.3-7.7) k/uL Glucose (74-99) mg/dL POC Glucose (mg/dL) 244 H 209 H 193 H (75-99) mg/dL 06/22/19 06/22/19 06/22/19 Range/Units 06:00 06:00 06:30 WBC 11.7 H (3.8-10.6) k/uL RBC 3.67 L (4.30-5.90) m/uL Hgb 10.7 L (13.0-17.5) gm/dL Hct 31.9 L (39.0-53.0) % RDW 16.7 H (11.5-15.5) % Plt Count 504 H (150-450) k/uL Neutrophils # 9.3 H (1.3-7.7) k/uL Glucose 171 H (74-99) mg/dL POC Glucose (mg/dL) 173 H (75-99) mg/dL Microbiology - Last 24 Hours (Table) 06/18/19 13:04 Blood Culture - Preliminary Blood No Growth after 72 hours Assessment and Plan (1) Dehydration Narrative/Plan: Improved with IV hydration. Patient is tolerating oral intake in diet being provided to him. Current Visit: Yes Status: Acute Priority: High Code(s): E86.0 - DEHYDRATION SNOMED Code(s): 07763998 (2) Fever Current Visit: Yes Status: Resolved Priority: Low Code(s): R50.9 - FEVER, UNSPECIFIED SNOMED Code(s): 750362562 (3) Generalized weakness Narrative/Plan: Plan is for rehab before going back home. Pt is unable to receive chemo or immunotherapy while in rehab, he and family verbalized understanding Current Visit: Yes Status: Acute Priority: High Code(s): R53.1 - WEAKNESS SNOMED Code(s): 69788117 (4) Non-small cell lung cancer (NSCLC) Narrative/Plan: S/P 1st cycle of carbo/alimta/keytruda and he completed XRT to brain for metastatic NSCLC. Very late onset of symptoms, do not anticipate relation to chemo/immunotherapy as he is improving rapidly with fluids and abx. We will taper steroids since pt is going to be in rehab and treatment is going to be held until after he returns home-in case of an immune SE. prescription for tapering prednisone has been E-prescribed Current Visit: Yes Status: Acute Priority: High Code(s): C34.90 - MALIGNANT NEOPLASM OF UNSP PART OF UNSP BRONCHUS OR LUNG SNOMED Code(s): 629037455
[2019-06-22 12:15] LABS: Glucose,Whole Blood 210 mg/dL (75-99)
[2019-06-22] MEDS: SODIUM CHLORIDE 0.9% 1,000 ML IV SCH (12:38)
[2019-06-22 17:10] LABS: Glucose,Whole Blood 207 mg/dL (75-99)
[2019-06-22] MEDS: LEVOFLOXACIN 500 MG TAB PO SCH (20:27)
[2019-06-22] MEDS: ATORVASTATIN 40 MG TAB PO SCH (20:27)
[2019-06-22 20:59] LABS: Glucose,Whole Blood 158 mg/dL (75-99)
[2019-06-22] MEDS ORDERED: INSULIN DETEMIR (LEVEMIR) 100 UNIT/ML SYR SQ SCH (21:00)
--- NOTE | 2019-06-22 22:08 | P.PN ---
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 with a previous medical history significant for stage IV lung cancer was started on chemotherapy and immunotherapy for the first cycle in April he was supposed to go for another chemotherapy yesterday however the patient for the past few days has been co mplaining of generalized weakness along with fever and poor appetite not able to ambulate around ,his friend came and tried to take him to the oncologist however he was so weak he called 911 and the patient was brought into the ER for evaluation he was slightly hypotensive on arrival he was given 2 L of normal saline also was found to have a temperature of 102.2, patient was given IV anabiotic in the form of Levaquin and Zosyn and he was started on IV steroid in the form of Solu-Medrol 40 mg IV push every 6 hours, patient was admitted to the hospital for evaluation by hematology oncology. 06/20: Patient has been seen by oncology. When seen by oncology, patient was planning to go to subacute rehab at the time of discharge and oncology was planning to hold chemotherapy treatment until after he was discharged from rehab. Upon discussion with the patient this morning, he states that he really wants to go home and he has a friend who will be helping him into his brother can be with enema July. Patient states he did not sleep well last night. He had to get up in the middle of the night for bowel movement. He denies any diarrhea. No shortness of breath. Patient has been afebrile, heart rate 77, blood pressure 113/61, pulse ox 96% on room air. White count 10.4, hemoglobin 9.2, platelet count 439. Sodium 140, potassium 4.1, chloride 111, CO2 19, BUN 9 and creatinine 1.03. Blood sugars are running in the 200s. Levemir added. Urine culture finalized with no growth. Blood culture no growth after 24 hours. 06/21patient was seen today, he seems to be weaker, still no appetite, no shortness of breath,discharge planning still needs to be decided by family, subacute against home,cultures are currently pending, family is undecided as D patient wants to go home, however therapies are recommending inpatient rehab, they understand that if subacute rehab is made, systemic cancer treatment will be held, vitals are stable, T-max98.1, pulse ox 99% on room air; 06/22.patient seen in bed, still feels weak but better, no falls, pt/ot is following, pt still deconditioned, no final plans from patient yet but subacute rehab has been recommended. no new pains today, no fever. on iv zosyn levaquin, cultures are negative, will decrease iv solumedrom and discontinue levaquin at this time, continue zosyn, poss post obstructive pneumonia related to lung ca progression Objective - Vital Signs Vital signs: Vital Signs Temp 97.8 F 06/22/19 14:52 Pulse 105 H 06/22/19 14:52 Resp 20 06/22/19 14:52 BP 118/77 06/22/19 14:52 Pulse Ox 95 06/22/19 14:52 Intake & Output 06/21/19 06/22/19 06/22/19 18:59 06:59 18:59 Intake Total 230 900 Output Total 3713 301 7000 Balance -970 100 -1000 Weight 68.6 kg Intake: Intake, IV Titration 700 Amount Sodium Chloride 0.9% 1, 700 000 ml @ 100 mls/hr IV . Q10H [facility] Rx#:[id number] Oral 230 200 Output: Urine 3115 323 9465 Other: # Voids 1 # Bowel Movements 1 - Constitutional General appearance: Present: cooperative, no acute distress - EENT Eyes: Present: anicteric sclerae, PERRLA, dentition normal ENT: Present: NA/AT, normal oropharynx - Respiratory Respiratory: bilateral: CTA, negative: diminished, dullness - Cardiovascular Rhythm: regular Heart sounds: normal: S1, S2 - Gastrointestinal General gastrointestinal: Present: normal bowel sounds, soft - Integumentary Integumentary: Present: decreased turgor, normal - Neurologic Neurologic: Present: CNII-XII intact - Musculoskeletal Musculoskeletal: Present: generalized weakness, strength equal bilaterally - Psychiatric Psychiatric: Present: A&O x's 3, appropriate affect - Labs CBC & Chem 7: 06/22/19 06:00 06/22/19 06:00 Labs: Abnormal Lab Results - Last 24 Hours (Table) 06/21/19 06/21/19 06/22/19 Range/Units 17:19 19:52 06:00 WBC 11.7 H (3.8-10.6) k/uL RBC 3.67 L (4.30-5.90) m/uL Hgb 10.7 L (13.0-17.5) gm/dL Hct 31.9 L (39.0-53.0) % RDW 16.7 H (11.5-15.5) % Plt Count 504 H (150-450) k/uL Neutrophils # 9.3 H (1.3-7.7) k/uL Glucose (74-99) mg/dL POC Glucose (mg/dL) 209 H 193 H (75-99) mg/dL 06/22/19 06/22/19 06/22/19 Range/Units 06:00 06:30 12:14 WBC (3.8-10.6) k/uL RBC (4.30-5.90) m/uL Hgb (13.0-17.5) gm/dL Hct (39.0-53.0) % RDW (11.5-15.5) % Plt Count (150-450) k/uL Neutrophils # (1.3-7.7) k/uL Glucose 171 H (74-99) mg/dL POC Glucose (mg/dL) 173 H 210 H (75-99) mg/dL Microbiology - Last 24 Hours (Table) 06/18/19 13:04 Blood Culture - Preliminary Blood No Growth after 96 hours Assessment and Plan Plan: 1. Acute febrile illness of unclear etiology possible gram-negative pneumonia. Continue Levaquin and Zosyn, monitor the patient very closely, continue IV fluid resuscitation in the form of normal saline at 100 mL an hour, we will start the patient on Solu-Medrol 40 mg IV push every 6 hours as well hematology oncology consultation appreciated. This is could be all related to drug reactions and or tumor related fever. 2. Stage IV lung cancer status post chemotherapy and immunotherapy. Consult hematology oncology appreciated. 3. Diabetes mellitus type 2 uncontrolled with hyperglycemia secondary to steroids. Levemir added. Continue metformin 500 mg orally twice every day. 4. Hyperlipidemia. Continue Lipitor 40 mg orally once every day. 5. PAD. Status post left PTBA of the left leg stable. 6. Enlarged prostate. Continue Flomax 0.4 mg orally once every day. 7. DVT prophylaxis. Heparin 5000 units subcutaneously every 12 hours. 8. GI prophylaxis. Continue Pepcid. 9. Patient is full code. Discharge plan: Most likely return home or [facility] on Sunday, final plans are pending
[2019-06-23] MEDS: PIPERACILLIN-TAZOBACTAM 3.375 GM in SODIUM CHLORIDE 0.9% 100 ML IVPB SCH ×2 (00:01→08:38)
[2019-06-23] MEDS: SODIUM CHLORIDE 0.9% 1,000 ML IV SCH ×2 (00:17→08:36)
[2019-06-23 00:23] VITALS: RESP 18
[2019-06-23 07:15] LABS: Glucose,Whole Blood 99 mg/dL (75-99)
[2019-06-23] MEDS: INSULIN ASPART (NovoLOG) 100 UNIT/ML VIAL SQ SCH ×2 (08:36→12:25)
[2019-06-23] MEDS: TAMSULOSIN 0.4 MG CAP.ER.24H PO SCH (08:40)
[2019-06-23] MEDS: HEPARIN SODIUM,PORCINE 5,000 UNIT/ML 1 ML VIAL SQ SCH (08:40)
[2019-06-23] MEDS: FAMOTIDINE 20 MG TAB PO SCH (08:40)
[2019-06-23] MEDS: levETIRAcetam 500 MG TAB PO SCH (08:40)
[2019-06-23] MEDS: FOLIC ACID 1 MG TAB PO SCH (08:40)
[2019-06-23] MEDS: metFORMIN 500 MG TAB PO SCH (08:41)
[2019-06-23] MEDS: SENNOSIDES-DOCUSATE SODIUM 1 EACH TAB PO SCH (08:41)
[2019-06-23 08:57] LABS: Anisocytosis Slight; Basophils # (A) 0.1 k/uL (0-0.2); Basophils % (A) 0 %; Eosinophils # (A) 0.1 k/uL (0-0.7); Eosinophils % (A) 1 %; HCT 35.7 % (39.0-53.0); HGB 11.9 gm/dL (13.0-17.5); Lymphocytes # (A) 2.9 k/uL (1.0-4.8); Lymphocytes % (A) 21 %; MCH 28.7 pg (25.0-35.0); MCHC 33.3 g/dL (31.0-37.0); Mean Platelet Volume 7.1; Monocytes # (A) 1.1 k/uL (0-1.0); Monocytes % (A) 8 %; Neutrophils # (A) 9.7 k/uL (1.3-7.7); Neutrophils % (A) 69 %; Platelet Count 468 k/uL (150-450); RBC 4.15 m/uL (4.30-5.90); RDW 16.8 % (11.5-15.5); WBC 14.1 k/uL (3.8-10.6)
[2019-06-23] MEDS ORDERED: methylPREDNISolone SOD SUCCI 40 MG/ML 1 ML VIAL IV SCH (09:00)
[2019-06-23 09:20] LABS: Calcium 8.8 mg/dL (8.4-10.2); Potassium 3.6 mmol/L (3.5-5.1)
[2019-06-23 12:08] LABS: Glucose,Whole Blood 128 mg/dL (75-99)
[2019-06-23 12:52] VITALS: BP 128/78; PULSE 94; TEMP 97.7
--- NOTE | 2019-06-23 14:33 | P.DS ---
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 with a previous medical history significant for stage IV lung cancer was started on chemotherapy and immunotherapy for the first cycle in April he was supposed to go for another chemotherapy yesterday however the patient for the past few days has been complaining of generalized weakness along with fever and poor appetite not able to ambulate around ,his friend came and tried to take him to the oncologist however he was so weak he called 911 and the patient was brought into the ER for evaluation he was slightly hypotensive on arrival he was given 2 L of normal saline also was found to have a temperature of 102.2, patient was given IV anabiotic in the form of Levaquin and Zosyn and he was started on IV steroid in the form of Solu-Medrol 40 mg IV push every 6 hours, patient was admitted to the hospital for evaluation by hematology oncology. 06/20: Patient has been seen by oncology. When seen by oncology, patient was planning to go to subacute rehab at the time of discharge and oncology was planning to hold chemotherapy treatment until after he was discharged from rehab. Upon discussion with the patient this morning, he states that he really wants to go home and he has a friend who will be helping him into his brother can be with enema July. Patient states he did not sleep well last night. He had to get up in the middle of the night for bowel movement. He denies any diarrhea. No shortness of breath. Patient has been afebrile, heart rate 77, blood pressure 113/61, pulse ox 96% on room air. White count 10.4, hemoglobin 9.2, platelet count 439. Sodium 140, potassium 4.1, chloride 111, CO2 19, BUN 9 and creatinine 1.03. Blood sugars are running in the 200s. Levemir added. Urine culture finalized with no growth. Blood culture no growth after 24 hours. 06/21patient was seen today, he seems to be weaker, still no appetite, no shortness of breath,discharge planning still needs to be decided by family, subacute against home,cultures are currently pending, family is undecided as D patient wants to go home, however therapies are recommending inpatient rehab, they understand that if subacute rehab is made, systemic cancer treatment will be held, vitals are stable, T-max98.1, pulse ox 99% on room air; 06/22.patient seen in bed, still feels weak but better, no falls, pt/ot is following, pt still deconditioned, no final plans from patient yet but subacute rehab has been recommended. no new pains today, no fever. on iv zosyn levaquin, cultures are negative, will decrease iv solumedrom and discontinue levaquin at this time, continue zosyn, poss post obstructive pneumonia related to lung ca progression 06/23: Oncology plans to taper steroids and hold treatment while patient is in rehab. Patient denies any new complaints. He does seem to be weak today. His friend is at bedside and both are in agreement that he will go to subacute rehab. He has been afebrile, heart rate 94, blood pressure 120/78, pulse ox 95% on room air. A repeat lab work reveals a white count of 14.1, hemoglobin 11.9 and platelet count 468. Lactulose within normal limits, blood sugar 119. Patient will be discharged to [facility] today in stable condition. Discharge diagnoses: 1. Acute febrile illness of unclear etiology possible gram-negative pneumonia. 2. Stage IV lung cancer status post chemotherapy and immunotherapy. 3. Diabetes mellitus type 2 uncontrolled with hyperglycemia secondary to steroids. 4. Hyperlipidemia. 5. PAD. Status post left PTBA of the left leg stable. 6. Enlarged prostate. Discharge plan: [facility] Impression and plan of care have been directed as dictated by the signing physician. Janna Hillman nurse practitioner acting as scribe for signing physician. Patient Condition at Discharge: Good Plan - Discharge Summary Discharge Rx Participant: No New Discharge Prescriptions: New predniSONE 20 mg PO DAILY #20 tab Amoxicillin/Potassium Clav [Augmentin 875-125 Tablet] 1 each PO Q12HR #18 tab Continue Tamsulosin [Flomax] 0.4 mg PO DAILY Sennosides/Docusate Sodium [Senna-S Laxative Tablet] 1 tab PO BID Metoclopramide [Reglan] 10 mg PO Q6H PRN PRN Reason: Nausea metFORMIN HCL [Glucophage] 500 mg PO BID levETIRAcetam [Keppra] 500 mg PO Q12HR Ondansetron HCl [Zofran] 8 mg PO Q8H PRN PRN Reason: Nausea Folic Acid 1 mg PO DAILY Famotidine 20 mg PO BID Atorvastatin [Lipitor] 40 mg PO HS HYDROcodone/APAP 5-325MG [[place] 5-325] 1 tab PO Q4HR PRN #18 tab PRN Reason: Pain Discharge Medication List Atorvastatin [Lipitor] 40 mg PO HS 06/18/19 [History] Famotidine 20 mg PO BID 06/18/19 [History] Folic Acid 1 mg PO DAILY 06/18/19 [History] Metoclopramide [Reglan] 10 mg PO Q6H PRN 06/18/19 [History] Ondansetron HCl [Zofran] 8 mg PO Q8H PRN 06/18/19 [History] Sennosides/Docusate Sodium [Senna-S Laxative Tablet] 1 tab PO BID 06/18/19 [History] Tamsulosin [Flomax] 0.4 mg PO DAILY 06/18/19 [History] levETIRAcetam [Keppra] 500 mg PO Q12HR 06/18/19 [History] metFORMIN HCL [Glucophage] 500 mg PO BID 06/18/19 [History] predniSONE 20 mg PO DAILY #20 tab 06/22/19 [Rx] Amoxicillin/Potassium Clav [Augmentin 875-125 Tablet] 1 each PO Q12HR #18 tab 06/23/19 [Rx] HYDROcodone/APAP 5-325MG [[place] 5-325] 1 tab PO Q4HR PRN #18 tab 06/23/19 [Rx] Follow up Appointment(s)/Referral(s): Tomas Browne MD [Primary Care Provider] - 1 Week (After discharge from [facility]) Activity/Diet/Wound Care/Special Instructions: Activity as tolerated Heart Healthy diet [facility] Discharge Disposition: TRANSFER TO SNF/ECF
--- NOTE | 2019-06-23 15:44 | P.PN ---
Subjective Progress Note Date: 06/23/19 Principal diagnosis: NSCLCA/Dehydration Objective - Vital Signs Vital signs: Vital Signs Temp 97.7 F 06/23/19 12:11 Pulse 94 06/23/19 12:11 Resp 18 06/23/19 12:11 BP 128/78 06/23/19 12:11 Pulse Ox 95 06/23/19 12:11 Intake & Output 06/22/19 06/23/19 06/23/19 18:59 06:59 18:59 Intake Total 550 Output Total 1000 Balance -1000 550 Weight 65 kg Intake: Oral 550 Output: Urine 1000 Other: Voiding Method Urinal Urinal Toilet # Voids 1 3 1 # Bowel Movements 2 1 - Exam - Constitutional General appearance: cooperative, no acute distress, thin - EENT Eyes: anicteric sclerae, EOMI, poor dentition ENT: hearing grossly normal, normal oropharynx - Neck Neck: no lymphadenopathy - Respiratory Respiratory: bilateral: diminished - Cardiovascular Rhythm: regular Heart sounds: normal: S1, S2 Abnormal Heart Sounds: no systolic murmur, no diastolic murmur, no rub, no S3 Gallop, no S4 Gallop, no click, no other leg Peripheral Edema: bilateral: Trace - Gastrointestinal General gastrointestinal: no absent bowel sounds, no decreased bowel sounds, no distended, no hepatomegaly, no hyperactive bowel sounds, normal bowel sounds, no organomegaly, no rigid, no scaphoid, soft, no splenomegaly, no tenderness, no umbilical hernia, no ventral hernia - Neurologic Neurologic: CNII-XII intact - Musculoskeletal Musculoskeletal: generalized weakness - Psychiatric Psychiatric: A&O x's 3, appropriate affect, intact judgment & insight - Labs CBC & Chem 7: 06/23/19 08:39 06/23/19 08:39 Labs: Abnormal Lab Results - Last 24 Hours (Table) 06/22/19 06/22/19 06/23/19 Range/Units 16:49 20:51 08:39 WBC 14.1 H (3.8-10.6) k/uL RBC 4.15 L (4.30-5.90) m/uL Hgb 11.9 L (13.0-17.5) gm/dL Hct 35.7 L (39.0-53.0) % RDW 16.8 H (11.5-15.5) % Plt Count 468 H (150-450) k/uL Neutrophils # 9.7 H (1.3-7.7) k/uL Monocytes # 1.1 H (0-1.0) k/uL Glucose (74-99) mg/dL POC Glucose (mg/dL) 207 H 158 H (75-99) mg/dL 06/23/19 06/23/19 Range/Units 08:39 11:55 WBC (3.8-10.6) k/uL RBC (4.30-5.90) m/uL Hgb (13.0-17.5) gm/dL Hct (39.0-53.0) % RDW (11.5-15.5) % Plt Count (150-450) k/uL Neutrophils # (1.3-7.7) k/uL Monocytes # (0-1.0) k/uL Glucose 119 H (74-99) mg/dL POC Glucose (mg/dL) 128 H (75-99) mg/dL Microbiology - Last 24 Hours (Table) 06/18/19 13:04 Blood Culture - Preliminary Blood No Growth after 120 hours Assessment and Plan Plan: Assessment and Plan Dehydration - Improving Fever - Improved, Afebrile - Cultures pending. Empiric abx Generalized weakness - PT/OT Benefit with [facility] PT/OT, he inquires about In patient Rehab prior to discharge home, understanding if he is in a facility systemic cancer treatment will need to be held. Non-small cell lung cancer (NSCLC) - S/P 1st cycle of carbo/alimta/keytruda and XRT to brain for metastatic NSCLC. PLAN: - Feel Symptoms presented late, likely secondary to failure to thrive, decreased PO intake and progressive dehydration and nutrition, Patient refused h ome services i.e. meals on wheels. Taper Steroids since pt is going to be in rehab and treatment is going to be held until after he returns home-in case of an immune SE. - Continue supportive care in interim and encourage increase activity Physician Attestation: I have performed the full physical examination and reviewed the full history of this patient, as well as pertinent findings. I have created the compled impression and recommendations. I agree with the above dictation by JESSICA Baker. This dictation has been written as a scribe.
== END 2019-06-23 16:28 | DRG 178 ==
LOC: EC 12:37 → 3SCARD 17:19 → 4MS4W 06-22 14:18
PROVIDERS: ADMIT Internal Medicine; ATTEND Internal Medicine
DX: J15.6 Pneumonia due to other Gram-negative bacteria (principal); C34.90 Malignant neoplasm of unspecified part of unspecified bronchus or lung; C79.31 Secondary malignant neoplasm of brain; Z87.891 Personal history of nicotine dependence; E11.51 Type 2 diabetes mellitus with diabetic peripheral angiopathy without gangrene; E11.65 Type 2 diabetes mellitus with hyperglycemia; E78.5 Hyperlipidemia, unspecified; E86.0 Dehydration; I10 Essential (primary) hypertension; K21.9 Gastro-esophageal reflux disease without esophagitis; N40.0 Benign prostatic hyperplasia without lower urinary tract symptoms; T38.0X5A Adverse effect of glucocorticoids and synthetic analogues, initial encounter; Z79.84 Long term (current) use of oral hypoglycemic drugs; Z79.899 Other long term (current) drug therapy; Z80.3 Family history of malignant neoplasm of breast; Z80.42 Family history of malignant neoplasm of prostate; Z82.0 Family history of epilepsy and other diseases of the nervous system; Z82.5 Family history of asthma and other chronic lower respiratory diseases; Z83.3 Family history of diabetes mellitus; Z92.21 Personal history of antineoplastic chemotherapy; Z92.3 Personal history of irradiation; Z60.2 Problems related to living alone; R26.9 Unspecified abnormalities of gait and mobility; Z95.828 Presence of other vascular implants and grafts
CPT/HCPCS: 36415; 71046; 71275; 76705; 80048; 80053; 80177; 81001; 83036; 83605; 84439; 84443; 84481; 85025; 85610; 85730; 87040; 87086; 93005; 96361; 96365; 96367; 96374; 99285